=== PATIENT | female | born 1950 | race Caucasian/White ===

== ENCOUNTER 2016-07-25 07:34 | Day surgery (SDC) | payer MEDICARE, OTHER ==
[2016-07-25] MEDS ORDERED: PROPOFOL 200 MG/20 ML VIAL IV ONE (08:00)
[2016-07-25] MEDS ORDERED: Lidocaine 1% 20ml (SOUTH OMNI) ONE (08:00)
[2016-07-25] MEDS ORDERED: LACTATED RINGERS 1,000 ML IV.SOLN IV ONE (08:00)
[2016-07-25 09:29] VITALS: BP 123/70
--- NOTE | 2016-07-25 13:32 | GI Report ---
REFERRING PHYSICIAN: Dr. Yenifer Rodrigues CHECKER/STOCKER: Alexander Patrick MD PROCEDURE MEDICATION: Propofol as per anesthesia. INDICATIONS: This 65-year-old woman who has had polyps in the past is referred for an evaluation. She also does have pulmonary issues and asthma. She does weigh 215 pounds and carries that weight centrally. FINDINGS: 1. Two polyps removed. The larger polyp was in the sigmoid at 30 cm. 2. Poor prep. PROCEDURE PERFORMED: Colonoscopy with polypectomy. PROCEDURE: The Olympus video colonoscope was slowly advanced all the way to the cecum. Prep was really fairly poor. We did lavage a number of areas. The appendiceal orifice and ileocecal valve looked normal. In the ascending colon, there was a 2 to 3 mm little flat polyp removed with a cold snare, though the specimen was lost in the suction. On slow withdrawal, the transverse colon had no obvious intraluminal lesions noted. The descending colon with no obvious intraluminal lesions noted until you get to 30 cm, at the proximal sigmoid, a polyp there was at least 6 to 7 mm in size, which was removed with electrocautery. There was 1 little piece left, so a second removal was accomplished and submitted to pathology. The remaining part of the sigmoid, rectum, and retroflexion was normal. Breathing richard, the patient did well. We kept her head of the bed elevated. RECOMMENDATIONS: Pending the pathology of the polyp, she needs her colon re-looked at again in 3 to 5 years. Next time, she needs a 2-day prep. In regards to her cough and pulmonary symptoms, I recommend she sleep with her bed elevated and losing 20 to 25 pounds of weight would markedly decrease intragastric pressure and improve reflux, which may aggravate pulmonary symptoms. cc: Dr. Yenifer KAUFMAN
== END 2016-07-25 10:00 | disposition home or self-care (01) ==
LOC: OPSURG 07:34
PROVIDERS: ATTEND Internal Medicine Gastroenterology
DX: Z12.11 Encounter for screening for malignant neoplasm of colon (principal); D12.5 Benign neoplasm of sigmoid colon; D12.2 Benign neoplasm of ascending colon
CPT/HCPCS: 45384; 88305; J2704; J7120; S1016

== ENCOUNTER 2017-08-31 09:48 | Outpatient (CLI) | payer MEDICARE, OTHER ==
[2017-08-31 10:07] LABS: BASOPHILS % 0.6 (0.0-1.5); EOSINOPHILS % 1.7 % (0.0-6.8); MEAN CORPUSCULAR HEMOGLOBIN 29.3 pg (28.0-34.0); MEAN CORPUSCULAR VOLUME 89.8 fl (80.0-100.0); MONOCYTES % 3.2 % (0.0-11.0); NEUTROPHILS # 5.8 # k/uL (1.4-7.7)
[2017-08-31 10:44] LABS: eGFR (African) > 60; eGFR (Non-African) > 60
== END 2017-08-31 09:50 ==
LOC: LAB 09:48
PROVIDERS: ATTEND Family Medicine
DX: R10.11 Right upper quadrant pain (principal)
CPT/HCPCS: 36415; 80053; 85025

== ENCOUNTER 2018-11-01 09:04 | Outpatient (CLI) | payer MEDICARE, OTHER ==
[2018-11-01 09:45] LABS: eGFR (Non-African) > 60
== END 2018-11-01 09:06 ==
LOC: LAB 09:04
PROVIDERS: ATTEND Family Medicine
DX: E78.2 Mixed hyperlipidemia (principal); R73.9 Hyperglycemia, unspecified; E03.9 Hypothyroidism, unspecified
CPT/HCPCS: 36415; 80053; 80061; 83036; 84443